=== PATIENT | female | born 1985 | race Caucasian/White ===

== ENCOUNTER 2019-11-12 13:56 | Emergency (ER) | payer OTHER ==
[~2019-11-12] VITALS: Ht 158.8 cm; Wt 61.2 kg
[2019-11-12] MEDS ORDERED: ACETAMINOPHEN 500 MG TABLET PO STA (14:31)
--- NOTE | 2019-11-12 14:42 | PHYS DOC ---
Past Medical History Past Medical History: Anxiety, Diverticulosis, Fibromyalgia, GERD, Kidney Stone, UTI, Other Additional Past Medical Histor: gastric ulcers; (NURY KEEN APRN) Past Surgical History: Tubal ligation Additional Past Surgical Histo: r carpal tunnel (NURY KEEN APRN) Alcohol Use: Rarely Drug Use: None (NURY KEEN APRN) Adult General Chief Complaint Chief Complaint: ABDOMINAL PAIN [facility] HPI Patient is a 33 year old female who presents with left lower quadrant abdominal pain that started prior to arrival. Patient states the pain started after she was eating lunch. Rates her pain as 6 out of 10 in severity and states it is accompanied by nausea. She has a history of diverticulitis. (NURY KEEN APRN) Review of Systems Review of Systems Constitutional: Denies fever or chills [] Eyes: Denies change in visual acuity, redness, or eye pain [] HENT: Denies nasal congestion or sore throat [] Respiratory: Denies cough or shortness of breath [] Cardiovascular: No additional information not addressed in HPI [] GI: Reports abdominal pain, nausea, denies vomiting, bloody stools or diarrhea [] : Denies dysuria or hematuria [] Neurologic: Denies headache, focal weakness or sensory changes [] Endocrine: Denies polyuria or polydipsia [] Complete systems were reviewed and found to be within normal limits, except as documented in this note. (NURY KEEN APRN) Current Medications Current Medications Current Medications Medications (Trade) Dose Ordered Sig/Anton Start Time Stop Time Status Last Admin Dose Admin Acetaminophen (Tylenol) 1,000 mg 1X STAT 11/12/19 14:31 11/12/19 14:34 DC 11/12/19 14:58 1,000 MG Info (CONTRAST GIVEN -- Rx MONITORING) 1 each PRN DAILY PRN 11/12/19 15:00 11/12/19 16:49 DC Iohexol (Omnipaque 300 Mg/ml) 75 ml 1X ONCE 11/12/19 15:30 11/12/19 15:31 DC 11/12/19 15:16 75 ML Ondansetron HCl (Zofran) 4 mg 1X ONCE 11/12/19 15:00 11/12/19 15:01 DC 11/12/19 14:58 4 MG Sodium Chloride 1,000 ml @ 1,000 mls/hr 1X ONCE 11/12/19 15:00 11/12/19 15:59 DC 11/12/19 14:57 1,000 MLS/HR (NURY CARTAGENA DO) Allergies Allergies Allergies Coded Allergies Type Severity Reaction Last Updated Verified Penicillins Allergy Intermediate HIVES 11/12/19 Yes (NURY CARTAGENA DO) Physical Exam Physical Exam Constitutional: Well developed, well nourished, no acute distress, non-toxic appearance. [] HENT: Normocephalic, atraumatic, bilateral external ears normal, oropharynx moist, no oral exudates, nose normal. [] Cardiovascular:Heart rate regular rhythm, no murmur [] Lungs & Thorax: Bilateral breath sounds clear to auscultation [] Abdomen: Bowel sounds normal, soft, left lower quadrant abdominal pain with tenderness and guarding, no masses, no pulsatile masses. [] Skin: Warm, dry, no erythema, no rash. [] Neurologic: Alert and oriented X 3, normal motor function, normal sensory function, no focal deficits noted. [] Psychologic: Affect normal, judgement normal, mood normal. [] (NURY KEEN APRN) Current Patient Data Vital Signs Vital Signs Date Time Temp Pulse Resp B/P (MAP) Pulse Ox O2 Delivery O2 Flow Rate FiO2 11/12/19 16:19 62 16 101/65 (77) 99 Room Air 11/12/19 14:02 98.0 98.0 (NURY CARTAGENA DO) Lab Values Laboratory Tests Test 11/12/19 14:12 11/12/19 14:25 POC Urine HCG, Qualitative Hcg negative (Negative) White Blood Count 13.6 x10^3/uL (4.0-11.0) H Red Blood Count 4.25 x10^6/uL (3.50-5.40) Hemoglobin 14.3 g/dL (12.0-15.5) Hematocrit 42.0 % (36.0-47.0) Mean Corpuscular Volume 99 fL (79-100) Mean Corpuscular Hemoglobin 34 pg (25-35) Mean Corpuscular Hemoglobin Concent 34 g/dL (31-37) Red Cell Distribution Width 14.5 % (11.5-14.5) Platelet Count 279 x10^3/uL (140-400) Neutrophils (%) (Auto) 70 % (31-73) Lymphocytes (%) (Auto) 20 % (24-48) L Monocytes (%) (Auto) 7 % (0-9) Eosinophils (%) (Auto) 3 % (0-3) Basophils (%) (Auto) 1 % (0-3) Neutrophils # (Auto) 9.4 x10^3/uL (1.8-7.7) H Lymphocytes # (Auto) 2.8 x10^3/uL (1.0-4.8) Monocytes # (Auto) 0.9 x10^3/uL (0.0-1.1) Eosinophils # (Auto) 0.4 x10^3/uL (0.0-0.7) Basophils # (Auto) 0.1 x10^3/uL (0.0-0.2) Urine Collection Type Unknown Urine Color Yellow Urine Clarity Clear Urine pH 7.5 Urine Specific Zachary <=1.005 Urine Protein Negative mg/dL (NEG-TRACE) Urine Glucose (UA) Negative mg/dL (NEG) Urine Ketones (Stick) Negative mg/dL (NEG) Urine Blood Negative (NEG) Urine Nitrite Positive (NEG) Urine Bilirubin Negative (NEG) Urine Urobilinogen Dipstick 0.2 mg/dL (0.2 mg/dL) Urine Leukocyte Esterase Trace (NEG) Urine RBC 0 /HPF (0-2) Urine WBC 5-10 /HPF (0-4) Urine Squamous Epithelial Cells Many /LPF Urine Bacteria Many /HPF (0-FEW) Sodium Level 142 mmol/L (136-145) Potassium Level 3.6 mmol/L (3.5-5.1) Chloride Level 106 mmol/L (98-107) Carbon Dioxide Level 27 mmol/L (21-32) Anion Gap 9 (6-14) Blood Urea Nitrogen 8 mg/dL (7-20) Creatinine 0.7 mg/dL (0.6-1.0) Estimated GFR (Cockcroft-Gault) 95.2 BUN/Creatinine Ratio 11 (6-20) Glucose Level 89 mg/dL (70-99) Calcium Level 8.8 mg/dL (8.5-10.1) Total Bilirubin 0.4 mg/dL (0.2-1.0) Aspartate Amino Transferase (AST) 10 U/L (15-37) L Alanine Aminotransferase (ALT) 8 U/L (14-59) L Alkaline Phosphatase 100 U/L (46-116) Total Protein 6.6 g/dL (6.4-8.2) Albumin 3.5 g/dL (3.4-5.0) Albumin/Globulin Ratio 1.1 (1.0-1.7) Lipase 96 U/L (73-393) Laboratory Tests 11/12/19 14:25 Laboratory Tests 11/12/19 14:25 Microbiology 11/12/19 Urine Culture - Final, Complete 11/12/19 Urine Culture Result 1 (NICOLE) - Final, Complete 11/12/19 Antimicrobic Susceptibility - Final, Complete (NURY CARTAGENA DO) EKG EKG [] (NURY KEEN APRN) Radiology/Procedures Radiology/Procedures [] IMAGING REPORT Signed PATIENT: CHE VILLALTA ACCOUNT: [id number] : 1985 LOCATION: ER AGE: 33 SEX: F EXAM STATUS: REG ER ORD. PHYSICIAN: NURY KEEN APRN REASON: llq abdominal pain and guarding PROCEDURE: CT ABD PELV W/ IV CONTRST ONLY EXAM: Abdomen and pelvis CT with intravenous contrast. HISTORY: Left lower quadrant pain. TECHNIQUE: Computed tomographic images of the abdomen and pelvis were obtained following the administration of 75 cc Omnipaque 300 intravenous contrast. Multiplanar reformatting was performed. *One or more of the following individualized dose reduction techniques were utilized for this examination: 1. Automated exposure control. 2. Adjustment of the mA and/or kV according to patient size. 3. Use of iterative reconstruction technique. COMPARISON: None. FINDINGS: Evaluation of the lower thorax demonstrates posterior dependent atelectasis. There is no infiltrate or pleural effusion. There is a 1.2 cm hypodense lesion within the anterior medial right hepatic lobe. The gallbladder, pancreas, spleen, stomach and adrenal glands are unremarkable. There is a 3 mm nonobstructing stone within the superior left kidney and a tiny cortical cyst within the inferior left kidney. There are mildly dilated renal pelves and there are prominent uterus. No obstructing lesion is seen. The urinary bladder is unremarkable. There is no appendicitis. There is no bowel obstruction. There is no abnormal bowel wall thickening. There is no free air. There are multiple prominent ovarian follicles and there is a small amount of nonspecific pelvic free fluid. The aorta is normal in caliber. There is no lymphadenopathy. There is no suspicious osseous lesion. IMPRESSION: 1. Mildly dilated bilateral renal collecting system. No obstructing lesion is seen. This may be due to the hydration status of patient or mild hydronephrosis. There is a nonobstructing left renal stone and tiny left renal cyst. 2. 1.2 cm suspected cyst or hemangioma within the liver. Electronically signed by: Annamarie Daniels MD (11/12/2019 3:41 PM) [facility] [place]CTATED and SIGNED BY: ANNAMARIE DANIELS MD DATE: 11/12/19 1541 (NURY KEEN APRN) Course & Med Decision Making Course & Med Decision Making Pertinent Labs and Imaging studies reviewed. (See chart for details) Will get labs, CT, and give supportive care. Unable to give opiods as patient is planning on driving home. Labs shows elevated WBC count at 13.9. UA shows nitrates. Appears to have UTI. CT was unremarkable for emergent changes. (NURY KEEN APRN) Dragon Disclaimer Dragon Disclaimer This electronic medical record was generated, in whole or in part, using a voice recognition dictation system. (NURY KEEN APRN) Departure Departure Impression: Primary Impression: Abdominal pain Additional Impression: Urinary tract infection Disposition: HOME, SELF-CARE Condition: STABLE Patient Instructions: Urinary Tract Infection Additional Instructions: Thank you for visiting [facility]. We appreciate you trusting us with your care. If any additional problems come up don't hesitate to return to visit us. Please follow up with your primary care provider so they can plan additional care if needed and know about the problem that you had. If symptoms worsen come back to the Emergency Department. Any concerning symptoms that start such as chest pain, shortness of air, weakness or numbness on one side of the body, running high fevers or any other concerning symptoms return to the ER. You have been prescribed an antibiotic today to help fight your infection. Please take all of the antibiotic as directed. If after 48 hours the infection is not improving, please return for more care. If the infection worsens, return to ER for additional care. Scripts Cephalexin (KEFLEX) 500 Mg Capsule 1 CAP PO BID for 7 Days, #14 CAP 0 Refills Prov: NURY KEEN APRN 11/12/19 Attending Signature Attending Signature I have reviewed the PA/TARIFF PUBLISHING AGENT's note and plan of care. I was available for consultation as needed during the patient's visit in the emergency department. I agree with the clinical impression, plan, and disposition. (NURY CARTAGENA DO) Problem Qualifiers Primary Impression: Abdominal pain Abdominal location: left lower quadrant Qualified Codes: R10.32 - Left lower quadrant pain Additional Impression: Urinary tract infection Urinary tract infection type: acute cystitis Hematuria presence: without hematuria Qualified Codes: N30.00 - Acute cystitis without hematuria NURY KEEN APRN Nov 12, 2019 14:42 NURY CARTAGENA DO Nov 16, 2019 19:02
[2019-11-12 14:44] LABS: BASO # 0.1 x10^3/uL (0.0-0.2); BASO % 1 % (0-3); EOS # 0.4 x10^3/uL (0.0-0.7); EOS % 3 % (0-3); HEMOGLOBIN 14.3 g/dL (12.0-15.5); LYMPH # 2.8 x10^3/uL (1.0-4.8); LYMPH % 20 % (24-48); MEAN CORPUSCULAR HEMOGLOBIN 34 pg (25-35); MEAN CORPUSCULAR HGB CONC 34 g/dL (31-37); MEAN CORPUSCULAR VOLUME 99 fL (79-100); MONO # 0.9 x10^3/uL (0.0-1.1); MONO % 7 % (0-9); NEUT # 9.4 x10^3/uL (1.8-7.7); NEUT % 70 % (31-73); PLATELET COUNT 279 x10^3/uL (140-400); RED BLOOD COUNT 4.25 x10^6/uL (3.50-5.40); RED CELL DISTRIBUTION WIDTH 14.5 % (11.5-14.5); WHITE BLOOD COUNT 13.6 x10^3/uL (4.0-11.0)
[2019-11-12 14:48] LABS: BILIRUBIN,URINE NEGATIVE (NEG); CLARITY,URINE CLEAR; COLOR,URINE YELLOW; NITRITE,URINE POSITIVE (NEG); PH,URINE 7.5; PROTEIN,URINE NEGATIVE (NEG-TRACE); UROBILINOGEN,URINE 0.2 mg/dL (0.2 mg/dL)
[2019-11-12 14:52] LABS: CALCIUM 8.8 mg/dL (8.5-10.1); CREATININE 0.7 mg/dL (0.6-1.0); GFR 95.2; POTASSIUM 3.6 mmol/L (3.5-5.1)
[2019-11-12 14:58] LABS: ALBUMIN 3.5 g/dL (3.4-5.0); ALBUMIN/GLOBULIN RATIO 1.1 (1.0-1.7); TOTAL BILIRUBIN 0.4 mg/dL (0.2-1.0); TOTAL PROTEIN 6.6 g/dL (6.4-8.2)
[2019-11-12 14:59] LABS: BACTERIA,URINE MANY /HPF (0-FEW); RBC,URINE 0 /HPF (0-2); SQUAMOUS EPITHELIAL CELL,UR MANY /LPF
[2019-11-12] MEDS ORDERED: CONTRAST GIVEN. MC PRN (15:00)
[2019-11-12] MEDS ORDERED: IV NORMAL SALINE 1000ML BAG 1,000 ML IV ONE (15:00)
[2019-11-12] MEDS ORDERED: ONDANSETRON PF 4 MG/2 ML VIAL. IV ONE (15:00)
[2019-11-12] MEDS ORDERED: IOHEXOL 300 MG/ML 100ML VIAL. IV ONE (15:30)
--- NOTE | 2019-11-12 15:44 | RAD ---
EXAM: Abdomen and pelvis CT with intravenous contrast. HISTORY: Left lower quadrant pain. TECHNIQUE: Computed tomographic images of the abdomen and pelvis were obtained following the administration of 75 cc Omnipaque 300 intravenous contrast. Multiplanar reformatting was performed. *One or more of the following individualized dose reduction techniques were utilized for this examination: 1. Automated exposure control. 2. Adjustment of the mA and/or kV according to patient size. 3. Use of iterative reconstruction technique. COMPARISON: None. FINDINGS: Evaluation of the lower thorax demonstrates posterior dependent atelectasis. There is no infiltrate or pleural effusion. There is a 1.2 cm hypodense lesion within the anterior medial right hepatic lobe. The gallbladder, pancreas, spleen, stomach and adrenal glands are unremarkable. There is a 3 mm nonobstructing stone within the superior left kidney and a tiny cortical cyst within the inferior left kidney. There are mildly dilated renal pelves and there are prominent uterus. No obstructing lesion is seen. The urinary bladder is unremarkable. There is no appendicitis. There is no bowel obstruction. There is no abnormal bowel wall thickening. There is no free air. There are multiple prominent ovarian follicles and there is a small amount of nonspecific pelvic free fluid. The aorta is normal in caliber. There is no lymphadenopathy. There is no suspicious osseous lesion. IMPRESSION: 1. Mildly dilated bilateral renal collecting system. No obstructing lesion is seen. This may be due to the hydration status of patient or mild hydronephrosis. There is a nonobstructing left renal stone and tiny left renal cyst. 2. 1.2 cm suspected cyst or hemangioma within the liver. Electronically signed by: Annamarie Vigil MD (11/12/2019 3:41 PM) [facility] [place]
[2019-11-12 16:19] VITALS: BP 101/65
[2019-11-12] MEDS ORDERED: CEPH-264 PO (16:21)
== END 2019-11-12 16:38 | disposition home or self-care (01) ==
LOC: ER 13:56
DX: N30.00 Acute cystitis without hematuria (principal); R10.32 Left lower quadrant pain; R11.0 Nausea; F41.9 Anxiety disorder, unspecified; M79.7 Fibromyalgia; K57.90 Diverticulosis of intestine, part unspecified, without perforation or abscess without bleeding; K21.9 Gastro-esophageal reflux disease without esophagitis; Z87.442 Personal history of urinary calculi; Z98.51 Tubal ligation status; Z98.890 Other specified postprocedural states; Z88.0 Allergy status to penicillin; Z79.899 Other long term (current) drug therapy
CPT/HCPCS: 36415; 74177; 80053; 81001; 81025; 83690; 85025; 87086; 96374; 99285; J2405; J7030; Q9967